=== PATIENT | male | born 1990 | race Caucasian/White ===

== ENCOUNTER 2019-06-07 18:54 | Emergency (ER) | payer BC ==
[2019-06-07] MEDS ORDERED: Sodium Chloride 0.9% 1,000 ML IV ONE (19:38)
[2019-06-07] MEDS ORDERED: Sodium Chloride 0.9% 2.5 ML Syringe FLUSH PRN (19:38)
[2019-06-07] MEDS ORDERED: Sodium Chloride 0.9% 10 ML Syringe FLUSH PRN (19:38)
--- NOTE | 2019-06-07 19:38 | EDM.PDOC ---
ED HPI GENERAL MEDICAL PROBLEM - General Chief Complaint: General Stated Complaint: PT DIZZY Time Seen by Provider: 06/07/19 19:31 - History of Present Illness INITIAL COMMENTS - FREE TEXT/NARRATIVE: HISTORY AND PHYSICAL: History of present illness: The patient is a 28-year-old male with no stated medical history who presents with several complaints ED this evening; the first complaint is of bilateral pain to the soles of his feet for the last one year but worse the last 2 weeks. He denies any swelling or trauma to the area and says that it does come and go and he never sees any redness or swelling but he wears different types of boots for work and he says sometimes his feet hurt and sometimes they do not. He also comes to the ED stating that for the last one year he has episodes where he sometimes sees spots in his eyes but never loses vision and these are brief in occurrence and occur spontaneously. They have been ongoing for the last one year and he has not seen her provider for this as well and he occasionally gets headaches with it. His had no recent head trauma and has no neck or back pain. He is also here for one week of lightheadedness/dizziness that occurs more with position change but sometimes can occur when he is standing for long periods of time. He says he doesn't pass out or blackout and he occasionally gets a headache with this as well. He is not nauseated or vomit with it and he has no chest pain shortness of breath abdominal pain neck or back pain and no neurosensory changes in his extremities or weakness. He is very vague about all the symptoms and they all have been going on for quite some time and he says it is difficult with his job to get into a clinic. He currently in the ED is not having the symptoms of dizziness or lightheadedness and he has no headache chest pain or shortness of breath. His eating and drinking normally and has no leg pain or swelling. Review of systems: As per history of present illness and below otherwise all systems reviewed and negative. Past medical history: As per history of present illness and as reviewed below otherwise noncontributory. Surgical history: As per history of present illness and as reviewed below otherwise noncontributory. Social history: No reported history of drug or alcohol abuse. Family history: As per history of present illness and as reviewed below otherwise noncontributory. Physical exam: General: Well-developed well-nourished man who is nontoxic and vital signs were noted by me HEENT: Atraumatic, normocephalic, pupils reactive, negative for conjunctival pallor or scleral icterus, mucous membranes moist, throat clear, neck supple, nontender, trachea midline. Lungs: Clear to auscultation, breath sounds equal bilaterally, chest nontender. Heart: S1S2, regular and rhythm no overt murmurs Abdomen: Soft, nondistended, nontender. Negative for masses or hepatosplenomegaly. Negative for costovertebral tenderness. Pelvis: Stable nontender. Genitourinary: Deferred. Rectal: Deferred. Extremities: Atraumatic, negative for cords or calf pain. Neurovascular unremarkable. No pedal edema and full range of motion. At the feet bilaterally there is no evidence of soft tissue changes erythema ecchymosis palpable bony deformities or specific areas of tenderness Neuro: Awake, alert, oriented. Cranial nerves II through XII unremarkable. Cerebellum unremarkable. Motor and sensory unremarkable throughout. Exam nonfocal. Diagnostics: EKG orthostatic vital CBC CMP troponin TSH UA with reflex CT scan of the head Therapeutics: IV fluids Patient was made aware that the long-standing foot pain would need to be followed by podiatry and that the majority of his symptoms will likely need more follow-up in the clinic as they've been ongoing for significant period of time. He is aware that we will do some testing for his dizziness and lightheadedness and he is comfortable with this workup and discharge with clinic referral. I've also told the patient about the slightly elevated TSH that needs a formal thyroid panel as an outpatient. Impression: Multiple chronic medical problems, dizziness/lightheadedness x one week stable Definitive disposition and diagnosis as appropriate pending reevaluation and review of above. bilateral feet Pain Score (Numeric/FACES): 4 - Related Data Allergies Allergy/AdvReac Type Severity Reaction Status Date / Time No Known Allergies Allergy Verified 06/07/19 19:20 Home Meds: Home Meds . [No Known Home Meds] 06/07/19 [History] Past Medical History - Past Health History Medical/Surgical History: Denies Medical/Surgical History HEENT History: Reports: None Cardiovascular History: Reports: None Respiratory History: Reports: None Gastrointestinal History: Reports: None Genitourinary History: Reports: None Neurological History: Reports: None Psychiatric History: Reports: None Endocrine/Metabolic History: Reports: None Hematologic History: Reports: None Oncologic (Cancer) History: Reports: None Dermatologic History: Reports: None - Infectious Disease History Infectious Disease History: Reports: Chicken Pox - Past Surgical History Head Surgeries/Procedures: Reports: None GI Surgical History: Reports: None Male Surgical History: Reports: None Other Musculoskeletal Surgeries/Procedures:: right knee surgery Social & Family History - Family History Family Medical History: Noncontributory - Recreational Drug Use Recreational Drug Use: No ED ROS GENERAL - Review of Systems Review Of Systems: ROS reveals no pertinent complaints other than HPI. ED EXAM, GENERAL - Physical Exam Exam: See Below (See dictation) Course - Vital Signs Last Recorded V/S: Last Vital Signs Temp 36.8 C 06/07/19 19:22 Pulse 80 06/07/19 21:33 Resp 16 06/07/19 21:33 BP 129/64 06/07/19 21:33 Pulse Ox 97 06/07/19 21:33 Orthostatic Blood Pressure [ 154/92 Standing] Orthostatic Blood Pressure [ 150/95 Sitting] Orthostatic Blood Pressure [ 125/75 Supine] - Orders/Labs/Meds Orders: Active Orders 24 hr Category Date Time Status EKG Documentation Completion [RC] STAT Care 06/07/19 19:36 Active Orthostatic Vital Signs [RC] ASDIRECTED Care 06/07/19 19:36 Active Sodium Chloride 0.9% [Saline Flush] Med 06/07/19 19:38 Active 10 ml FLUSH ASDIRECTED PRN Sodium Chloride 0.9% [Saline Flush] Med 06/07/19 19:38 Active 2.5 ml FLUSH ASDIRECTED PRN Saline Lock Insert [OM.PC] Stat Oth 06/07/19 19:37 Ordered Medication Orders Sodium Chloride (Saline Flush) 10 ml FLUSH ASDIRECTED PRN PRN Reason: Keep Vein Open Sodium Chloride (Saline Flush) 2.5 ml FLUSH ASDIRECTED PRN PRN Reason: Keep Vein Open Labs: Laboratory Tests 06/07/19 06/07/19 06/07/19 Range/Units 19:54 19:57 19:57 WBC 6.67 (4.0-11.0) K/uL RBC 5.49 (4.50-5.90) M/uL Hgb 16.5 (13.0-17.0) g/dL Hct 47.2 (38.0-50.0) % MCV 86.0 (80.0-98.0) fL MCH 30.1 (27.0-32.0) pg MCHC 35.0 (31.0-37.0) g/dL RDW Std Deviation 39.8 (28.0-62.0) fl RDW Coeff of Benjamín 13 (11.0-15.0) % Plt Count 201 (150-400) K/uL MPV 9.20 (7.40-12.00) fL Neut % (Auto) 71.6 (48.0-80.0) % Lymph % (Auto) 20.4 (16.0-40.0) % Haines % (Auto) 6.7 (0.0-15.0) % Eos % (Auto) 1.2 (0.0-7.0) % Baso % (Auto) 0.1 (0.0-1.5) % Neut # (Auto) 4.8 (1.4-5.7) K/uL Lymph # (Auto) 1.4 (0.6-2.4) K/uL Haines # (Auto) 0.5 (0.0-0.8) K/uL Eos # (Auto) 0.1 (0.0-0.7) K/uL Baso # (Auto) 0.0 (0.0-0.1) K/uL Nucleated RBC % 0.0 /100WBC Nucleated RBCs # 0 K/uL Sodium 138 (136-148) mmol/L Potassium 4.5 (3.5-5.1) mmol/L Chloride 102 (98-107) mmol/L Carbon Dioxide 26.0 (21.0-32.0) mmol/L BUN 11 (7.0-18.0) mg/dL Creatinine 1.2 (0.8-1.3) mg/dL Est Cr Clr Drug Dosing 108.56 mL/min Estimated GFR (MDRD) > 60.0 ml/min Glucose 111 H (74-106) mg/dL Calcium 9.5 (8.5-10.1) mg/dL Total Bilirubin 0.4 (0.2-1.0) mg/dL AST 30 (15-37) IU/L ALT 81 H (14-63) IU/L Alkaline Phosphatase 71 (46-116) U/L Troponin I < 0.050 (0.000-0.056) ng/mL Total Protein 7.9 (6.4-8.2) g/dL Albumin 4.2 (3.4-5.0) g/dL Globulin 3.7 (2.6-4.0) g/dL Albumin/Globulin Ratio 1.1 (0.9-1.6) TSH 3rd Generation 5.61 H (0.36-3.74) uIU/mL Urine Color YELLOW Urine Appearance CLEAR Urine pH 6.0 (5.0-8.0) Ur Specific [place] 1.020 (1.001-1.035) Urine Protein NEGATIVE (NEGATIVE) mg/dL Urine Glucose (UA) NEGATIVE (NEGATIVE) mg/dL Urine Ketones NEGATIVE (NEGATIVE) mg/dL Urine Occult Blood NEGATIVE (NEGATIVE) Urine Nitrite NEGATIVE (NEGATIVE) Urine Bilirubin NEGATIVE (NEGATIVE) Urine Urobilinogen 0.2 (<2.0) EU/dL Ur Leukocyte Esterase NEGATIVE (NEGATIVE) Meds: Medications Generic Name Dose Route Start Last Admin Trade Name Freq PRN Reason Stop Dose Admin Sodium Chloride 10 ml 06/07/19 19:38 Saline Flush FLUSH ASDIRECTED PRN Keep Vein Open Sodium Chloride 2.5 ml 06/07/19 19:38 Saline Flush FLUSH ASDIRECTED PRN Keep Vein Open Discontinued Medications Generic Name Dose Route Start Last Admin Trade Name Freq PRN Reason Stop Dose Admin Sodium Chloride 1,000 mls @ 999 mls/hr 06/07/19 19:38 06/07/19 20:02 Normal Saline IV 06/07/19 20:38 999 mls/hr STAT ONE Administration Departure - Departure Time of Disposition: 22:01 Disposition: Home, Self-Care 01 Condition: Good Clinical Impression: Dizziness, nonspecific, Lightheadedness - Discharge Information Referrals: PCP,None [Primary Care Provider] - Forms: ED Department Discharge Additional Instructions: The following information is given to patients seen in the emergency department who are being discharged to home. This information is to outline your options for follow-up care. We provide all patients seen in our emergency department with a follow-up referral. The need for follow-up, as well as the timing and circumstances, are variable depending upon the specifics of your emergency department visit. If you don't have a primary care physician on staff, we will provide you with a referral. We always advise you to contact your personal physician following an emergency department visit to inform them of the circumstance of the visit and for follow-up with them and/or the need for any referrals to a consulting specialist. The emergency department will also refer you to a specialist when appropriate. This referral assures that you have the opportunity for followup care with a specialist. All of these measure are taken in an effort to provide you with optimal care, which includes your followup. Under all circumstances we always encourage you to contact your private physician who remains a resource for coordinating your care. When calling for followup care, please make the office aware that this follow-up is from your recent emergency room visit. If for any reason you are refused follow-up, please contact the [facility] emergency department at and ask to speak to the emergency department charge nurse. [facility] Primary care- Internal Medicine and Family Pr[facility] [address] [place] [address] [facility] Specialty clinic- Podiatry [address] [place] [address] Fax: [phone] Dr Aaliyah Morgan [address] [place] [id number] Please contact one of the customer service leader using resources given to above to discuss your one year of foot pain. Please connect with one of our clinic providers to discuss your other symptoms as we discussed and push hydration and rest. When you see a provider in the clinic please have them reevaluate your thyroid function as your screening test was slightly elevated and you need a full thyroid panel to be performed for further care. Return to ER as needed and as discussed. - My Orders Last 24 Hours: My Active Orders 06/07/19 19:36 EKG Documentation Completion [RC] STAT Orthostatic Vital Signs [RC] ASDIRECTED 06/07/19 19:37 Saline Lock Insert [OM.PC] Stat 06/07/19 19:38 Sodium Chloride 0.9% [Saline Flush] 10 ml FLUSH ASDIRECTED PRN Sodium Chloride 0.9% [Saline Flush] 2.5 ml FLUSH ASDIRECTED PRN - Assessment/Plan Last 24 Hours: My Active Orders 06/07/19 19:36 EKG Documentation Completion [RC] STAT Orthostatic Vital Signs [RC] ASDIRECTED 06/07/19 19:37 Saline Lock Insert [OM.PC] Stat 06/07/19 19:38 Sodium Chloride 0.9% [Saline Flush] 10 ml FLUSH ASDIRECTED PRN Sodium Chloride 0.9% [Saline Flush] 2.5 ml FLUSH ASDIRECTED PRN
--- NOTE | 2019-06-07 20:22 | CT ---
INDICATION : dizziness, blurred vision, patient states has had this problem come and go for about a year, but has worsened TECHNIQUE : Noncontrast CT scan of brain. Axial images. Bone windows. Please note that all CT scans at this facility use dose modulation, iterative reconstruction and/or weight-based dosing when appropriate to reduce radiation dose to as low as reasonably achievable(ALARA). COMPARISON: None. FINDINGS : No acute intra or extra-axial hemorrhage. The ventricles and sulci are normal size, shape and configuration. No visualized intracranial mass or additional abnormal attenuation. Bony calvarium is intact. IMPRESSION : Unremarkable noncontrast CT scan of the brain. No visualized acute intracranial radiographic abnormality. Dictated by Alexander Prado MD @ 06/07/2019 8:21:49 PM Please note that all CT scans at this facility use dose modulation, iterative reconstruction, and/or weight-based dosing when appropriate to reduce radiation dose to as low as reasonably achievable. Dictated by: Alexander Prado MD @ 06/07/2019 20:21:53 (Electronically Signed)
[2019-06-07 21:57] LABS: CHLORIDE,CL 102 mmol/L (98-107); SODIUM,NA 138 mmol/L (136-148)
== END 2019-06-07 22:07 | disposition home or self-care (01) ==
LOC: MW.ED 18:54
DX: R42 Dizziness and giddiness (principal); M79.671 Pain in right foot; M79.672 Pain in left foot
CPT/HCPCS: 36415; 70450; 80053; 81003; 84443; 84484; 85025; 93005; 96360; 99284; J7040